=== PATIENT | male | born 1955 | race Native Hawaiian/Other Pacific Islander ===

== ENCOUNTER 2017-06-03 12:16 | Emergency (ER) | payer MEDICARE ==
[2017-06-03 14:08] LABS: Bilirubin,Urine NEG (Negative); Blood,Urine NEG (Negative); Color,Urine Amber (Yellow); Mucus,Urine FEW /HPF; Nitrite,Urine NEG (Negative); WBC,Urine < 1.0 /HPF (0.0-6.0)
[2017-06-03 14:09] LABS: RBC,Urine < 1.0 /HPF (0.0-6.0)
[2017-06-03 14:24] LABS: Basophils # (Auto) 0.1 K/mm3 (0.0-0.1); Basophils % (Auto) 0.5 % (0.0-1.8); Eosinophils # (Auto) 0.1 K/mm3 (0.0-0.4); Eosinophils % (Auto) 0.8 % (0.0-4.3); Hematocrit 38.9 % (35.5-45.6); Hemoglobin 12.4 gm/dl (11.8-15.2); Lymphocytes # (Auto) 1.5 K/mm3 (1.2-5.4); Mean Corpuscular HGB Conc 32 % (32-34); Monocytes # (Auto) 0.8 K/mm3 (0.0-0.8); Monocytes % (Auto) 4.8 % (0.0-7.3); Platelet Count 219 K/mm3 (140-440); Red Blood Count 5.76 M/mm3 (3.65-5.03); Red Cell Distribution Width 16.1 % (13.2-15.2)
[2017-06-03 14:28] LABS: Alanine Aminotransferase 48 units/L (7-56); Albumin 4.5 g/dL (3.9-5); BUN/Creatinine Ratio 22; Blood Urea Nitrogen 11 mg/dL (9-20); Calcium 9.1 mg/dL (8.4-10.2); Hemolysis Index 22; Mean Corpuscular Hemoglobin 22 pg (28-32); Mean Corpuscular Volume 68 fl (84-94)
[2017-06-03] MEDS ORDERED: NACL 0.9% 1000 ML 1,000 ML IV ONE (22:37)
[2017-06-03] MEDS ORDERED: TORADOL IV ONE (22:48)
[2017-06-03] MEDS ORDERED: BENADRYL IV ONE (22:48)
[2017-06-03] MEDS ORDERED: REGLAN IV ONE (22:48)
--- NOTE | 2017-06-03 22:50 | Emergency Department Report ---
ED Abdominal Pain HPI - General Chief Complaint: Abdominal Pain Stated Complaint: ABD PAIN Time Seen by Provider: 06/03/17 22:37 Source: patient Mode of arrival: Ambulatory Limitations: No Limitations - History of Present Illness Initial Comments: 62-year-old male with a past medical history migraines, hypertension, and previous cholecystectomy presents complaining of abdominal pain and diarrhea since 7:30 AM. Patient obtained a generalized moderate cramping pain that worsens with by mouth intake. Patient has diarrhea shortly after by mouth intake. Positive nausea without vomiting. Patient denies fever, melena, hematochezia, hematemesis, recent travel, recent antibiotic use, or sick contacts. Patient also states he has a history of migraines and states that he has a headache and he has ongoing dental pain and complains of a toothache. - Related Data Previous Rx's Medication Instructions Recorded Last Taken Type Ibuprofen [Motrin] 600 mg PO Q8H PRN #30 tablet 06/04/17 Unknown Rx Loperamide [Imodium] 2 mg PO Q2HR PRN #20 capsule 06/04/17 Unknown Rx Ondansetron [Zofran Odt] 4 mg PO Q8HR #20 tab.rapdis 06/04/17 Unknown Rx traMADol [Ultram 50 MG tab] 50 mg PO Q6HR PRN #20 tablet 06/04/17 Unknown Rx Allergies Allergy/AdvReac Type Severity Reaction Status Date / Time iodine AdvReac Shortness Verified 06/03/17 13:33 of Breath Sulfa (Sulfonamide AdvReac Hives Verified 06/03/17 13:33 Antibiotics) ED Review of Systems ROS: Stated complaint: ABD PAIN Other details as noted in HPI Comment: All other systems reviewed and negative Other: Constitutional: No fevers chills Eyes: No eye pain visual changes ENT: No ear pain or throat pain Neck: Denies pain Respiratory: Denies cough wheezing shortness of breath Cardiovascular: Denies chest pain, palpitations, syncope GI:as per hpi : Denies dysuria Musculoskeletal: Denies back pain Skin: Denies rash, lesions, erythema Neurologic: Denies headache, numbness, weakness Psychiatric: Denies suicidal ideation ED Past Medical Hx - Past Medical History Previous Medical History?: Yes Hx Hypertension: Yes Hx Headaches / Migraines: Yes - Surgical History Hx Cholecystectomy: Yes Additional Surgical History: penis,right wrist - Social History Smoking Status: Current Every Day Smoker Substance Use Type: Alcohol - Medications Home Medications: Home Medications Medication Instructions Recorded Confirmed Last Taken Type Ibuprofen [Motrin] 600 mg PO Q8H PRN #30 tablet 06/04/17 Unknown Rx Loperamide [Imodium] 2 mg PO Q2HR PRN #20 capsule 06/04/17 Unknown Rx Ondansetron [Zofran Odt] 4 mg PO Q8HR #20 tab.rapdis 06/04/17 Unknown Rx traMADol [Ultram 50 MG tab] 50 mg PO Q6HR PRN #20 tablet 06/04/17 Unknown Rx ED Physical Exam - General Limitations: No Limitations - Other Other exam information: General: No limitations, patient is alert in no acute distress Head exam: Atraumatic, normocephalic Eyes exam: Normal appearance ENT: Moist mucous membrane, dental caries with missing teeth but no signs of abscess Neck exam: Normal inspection, full range of motion Respiratory exam: Clear to auscultation bilateral, no wheezes, rales, crackles Cardiovascular: Normal rate and rhythm, normal heart sounds Abdomen: Soft, nondistended, lower abdominal tenderness greatest at the right lower quadrant, with normal bowel sounds, no rebound, or guarding Extremity: Full range of motion normal inspection no deformity Back: Normal Inspection, full range of motion, no tenderness Neurologic: Alert, oriented x3, cranial nerves intact, no motor or sensory deficit Psychiatric: normal affect, normal mood Skin: Warm, dry, intact ED Course Vital Signs 06/03/17 06/03/17 06/03/17 13:29 22:30 22:45 Temperature 98.6 F Pulse Rate 100 H 76 70 Respiratory 16 20 12 Rate Blood Pressure 128/86 128/75 Blood Pressure [Left] O2 Sat by Pulse 97 96 Oximetry 06/03/17 06/03/17 06/03/17 22:57 23:00 23:15 Temperature Pulse Rate 99 H 69 72 Respiratory 20 20 14 Rate Blood Pressure 122/73 114/76 Blood Pressure 118/52 [Left] O2 Sat by Pulse 94 93 Oximetry 06/03/17 23:32 Temperature Pulse Rate Respiratory Rate Blood Pressure 114/76 Blood Pressure [Left] O2 Sat by Pulse 93 Oximetry ED Medical Decision Making - Lab Data Result diagrams: 06/03/17 13:34 06/03/17 13:34 Lab Results 06/03/17 06/03/1706/03/18 Range/Units 13:34 13:34 13:45 WBC 16.6 H (4.5-11.0) K/mm3 RBC 5.76 H (3.65-5.03) M/mm3 Hgb 12.4 (11.8-15.2) gm/dl Hct 38.9 (35.5-45.6) % MCV 68 L (84-94) fl MCH 22 L (28-32) pg MCHC 32 (32-34) % RDW 16.1 H (13.2-15.2) % Plt Count 219 (140-440) K/mm3 Lymph % (Auto) 9.0 L (13.4-35.0) % [place] % (Auto) 4.8 (0.0-7.3) % Eos % (Auto) 0.8 (0.0-4.3) % Baso % (Auto) 0.5 (0.0-1.8) % Lymph # 1.5 (1.2-5.4) K/mm3 [place] # 0.8 (0.0-0.8) K/mm3 Eos # 0.1 (0.0-0.4) K/mm3 Baso # 0.1 (0.0-0.1) K/mm3 Seg Neutrophils % 84.9 H (40.0-70.0) % Seg Neutrophils # 14.1 H (1.8-7.7) K/mm3 Sodium 133 L (137-145) mmol/L Potassium 3.7 (3.6-5.0) mmol/L Chloride 93.6 L (98-107) mmol/L Carbon Dioxide 22 (22-30) mmol/L Anion Gap 21 mmol/L BUN 11 (9-20) mg/dL Creatinine 0.5 L (0.8-1.5) mg/dL Estimated GFR > 60 ml/min BUN/Creatinine Ratio 22 % Glucose 235 H (75-100) mg/dL POC Glucose (70-105) Calcium 9.1 (8.4-10.2) mg/dL Total Bilirubin 0.80 (0.1-1.2) mg/dL AST 33 (5-40) units/L ALT 48 (7-56) units/L Alkaline Phosphatase 82 (35-129) units/L Total Protein 7.4 (6.3-8.2) g/dL Albumin 4.5 (3.9-5) g/dL Albumin/Globulin Ratio 1.6 % Urine Color [place] (Yellow) Urine Turbidity Clear (Clear) Urine pH 5.0 (5.0-7.0) Ur Specific [place] 1.026 (1.003-1.030) Urine Protein 30 mg/dl (Negative) mg/dL Urine Glucose (UA) 50 (Negative) mg/dL Urine Ketones Tr (Negative) mg/dL Urine Blood Neg (Negative) Urine Nitrite Neg (Negative) Urine Bilirubin Neg (Negative) Urine Urobilinogen 2.0 (<2.0) mg/dL Ur Leukocyte Esterase Tr (Negative) Urine WBC (Auto) < 1.0 (0.0-6.0) /HPF Urine RBC (Auto) < 1.0 (0.0-6.0) /HPF Urine Mucus Few /HPF 06/03/17 Range/Units 23:37 WBC (4.5-11.0) K/mm3 RBC (3.65-5.03) M/mm3 Hgb (11.8-15.2) gm/dl Hct (35.5-45.6) % MCV (84-94) fl MCH (28-32) pg MCHC (32-34) % RDW (13.2-15.2) % Plt Count (140-440) K/mm3 Lymph % (Auto) (13.4-35.0) % [place] % (Auto) (0.0-7.3) % Eos % (Auto) (0.0-4.3) % Baso % (Auto) (0.0-1.8) % Lymph # (1.2-5.4) K/mm3 [place] # (0.0-0.8) K/mm3 Eos # (0.0-0.4) K/mm3 Baso # (0.0-0.1) K/mm3 Seg Neutrophils % (40.0-70.0) % Seg Neutrophils # (1.8-7.7) K/mm3 Sodium (137-145) mmol/L Potassium (3.6-5.0) mmol/L Chloride (98-107) mmol/L Carbon Dioxide (22-30) mmol/L Anion Gap mmol/L BUN (9-20) mg/dL Creatinine (0.8-1.5) mg/dL Estimated GFR ml/min BUN/Creatinine Ratio % Glucose (75-100) mg/dL POC Glucose 154 H (70-105) Calcium (8.4-10.2) mg/dL Total Bilirubin (0.1-1.2) mg/dL AST (5-40) units/L ALT (7-56) units/L Alkaline Phosphatase (35-129) units/L Total Protein (6.3-8.2) g/dL Albumin (3.9-5) g/dL Albumin/Globulin Ratio % Urine Color (Yellow) Urine Turbidity (Clear) Urine pH (5.0-7.0) Ur Specific [place] (1.003-1.030) Urine Protein (Negative) mg/dL Urine Glucose (UA) (Negative) mg/dL Urine Ketones (Negative) mg/dL Urine Blood (Negative) Urine Nitrite (Negative) Urine Bilirubin (Negative) Urine Urobilinogen (<2.0) mg/dL Ur Leukocyte Esterase (Negative) Urine WBC (Auto) (0.0-6.0) /HPF Urine RBC (Auto) (0.0-6.0) /HPF Urine Mucus /HPF - Radiology Data Radiology results: report reviewed CT abd and pelvis noncontrast: No acute findings. Appendix normal. No ileus or enteritis. Fatty infiltration of the liver is noted with previous cholecystectomy - Medical Decision Making Diarrhea Viral versus food poisoning Positive nausea without vomiting CT does not show any acute abnormality No symptoms of invasive diarrhea Imodium will be prescribed with first dose in the ED Indication for pain and nausea will be prescribed Patient fell and better with ED treatment - Differential Diagnosis enteritis, appendicitis, colitis, dehydration, migraine, dental caries Critical Care Time: No Critical care attestation.: If time is entered above; I have spent that time in minutes in the direct care of this critically ill patient, excluding procedure time. ED Disposition Clinical Impression: Diarrhea, Headache, Toothache Disposition: TO HOME OR SELFCARE Is pt being admited?: No Does the pt Need Aspirin: No Condition: Stable Instructions: Acute Headache (ED), Acute Diarrhea (ED), Toothache (ED) Additional Instructions: Take the medication as prescribed. Follow with your doctor for further evaluation. Please return if symptoms worsen as indicated by your discharge instructions. Follow-up with the dentist for further treatment of your toothache Prescriptions: Ibuprofen [Motrin] 600 mg PO Q8H PRN #30 tablet PRN Reason: Pain Loperamide [Imodium] 2 mg PO Q2HR PRN #20 capsule PRN Reason: Diarrhea Ondansetron [Zofran Odt] 4 mg PO Q8HR #20 tab.rapdis traMADol [Ultram 50 MG tab] 50 mg PO Q6HR PRN #20 tablet PRN Reason: Pain Referrals: PRIMARY CARE, [Primary Care Provider] - 2-3 Days Time of Disposition: 01:30
--- NOTE | 2017-06-04 00:32 | Cat Scan Report ---
FINAL REPORT PROCEDURE: CT ABDOMEN PELVIS WO CON TECHNIQUE: Computerized axial tomography of the abdomen and pelvis was performed without intravenous contrast. This study is performed without intravascular contrast material and its sensitivity for abdominal and pelvic pathology, including neoplasms, inflammation, abscess, free fluid, thrombosis, arterial dissection and infarction, is reduced compared with a contrast enhanced study. HISTORY: n, diarhea, COMPARISON: No prior studies are available for comparison. FINDINGS: Visualized lower thorax: No significant abnormality. Liver: The liver has fatty infiltration.. Spleen: Normal size and attenuation. Gallbladder and biliary system: The gallbladder is absent. No dilatation of the biliary ductal system. Pancreas: Normal. Adrenals: The adrenal glands show areas of hypoattenuation measuring approximately 1.5 centimeters on each adrenal gland, adenoma is are suspected.. Kidneys: Both kidneys have normal size. No hydronephrosis. No renal stones or masses. GI tract: The stomach is normal. The small bowel has a normal appearance. The cecum, appendix and colon are normal.. Lymph nodes and mesentery: Normal. Vasculature: Mild atherosclerosis of the aorta and branching vessels. Bladder: Normal. Reproductive organs: Normal. Peritoneum: No free fluid. Musculoskeletal structures: Mild degenerative changes of the thoracic and lumbar spine. Other: None. IMPRESSION: There is no evidence of intestinal urinary tract obstruction. No ileus or enteritis. The appendix is normal. Fatty infiltration of the liver is noted. There has been previous cholecystectomy..
[2017-06-04] MEDS ORDERED: IMODIUM PO ONE (00:39)
[2017-06-04] MEDS ORDERED: ZOFRAN IV ONE (00:39)
[2017-06-04] MEDS: MORPHINE IV ONE ×2 (01:24→01:27)
[2017-06-04 02:20] VITALS: BP 143/80
== END 2017-06-04 02:22 | disposition home or self-care (01) ==
LOC: ED 12:16
DX: R19.7 Diarrhea, unspecified (principal); R51 Headache; K08.89 Other specified disorders of teeth and supporting structures; I10 Essential (primary) hypertension; G43.909 Migraine, unspecified, not intractable, without status migrainosus; F17.200 Nicotine dependence, unspecified, uncomplicated; Z88.2 Allergy status to sulfonamides; Z88.8 Allergy status to other drugs, medicaments and biological substances
CPT/HCPCS: 36415; 74176; 80053; 81001; 82962; 85025; 96361; 96374; 96375; 99284; J1200; J1885; J2270; J2405; J2765; J7030; J1815